=== PATIENT | male | born 1970 | race Caucasian/White ===

== ENCOUNTER 2020-01-25 12:51 | Day surgery (SDC) | payer BC ==
[~2020-01-25] VITALS: Ht 177.8 cm; Wt 114.3 kg
[~2020-01-25 12:51] MED LIST: DULO30; LEVSOD75; OMEP20ER
== END 2020-01-25 15:51 | disposition home or self-care (01) ==
LOC: ORSCSDS 12:51
PROVIDERS: Orthopaedic Surgery
PROC: 0JBP0ZZ Excision of Left Lower Leg Subcutaneous Tissue and Fascia, Open Approach (ICD-10-PCS; principal; 2020-01-25 14:15)
DX: D21.22 Benign neoplasm of connective and other soft tissue of left lower limb, including hip (principal); E03.9 Hypothyroidism, unspecified; E78.00 Pure hypercholesterolemia, unspecified; K21.9 Gastro-esophageal reflux disease without esophagitis; Z79.899 Other long term (current) drug therapy; E66.01 Morbid (severe) obesity due to excess calories; Z68.36 Body mass index [BMI] 36.0-36.9, adult
CPT/HCPCS: 88304; J0690; J1100; J1885; J2250; J2405; J2704; J2795; J3010; J7120